=== PATIENT | male | born 1935 | race Caucasian/White ===

== ENCOUNTER 2021-01-04 10:20 | Emergency (ER) | payer MEDICARE, OTHER ==
[~2021-01-04] VITALS: Ht 172.7 cm; Wt 74.8 kg
[2021-01-04] MEDS ORDERED: HYDROCHLOROTH12.5 MG PO (11:28)
[2021-01-04] MEDS ORDERED: AMLODIPINE BESYL5 MG PO (11:29)
[2021-01-04] MEDS ORDERED: METOPROLOL SUCC25 MG PO (11:29)
[2021-01-04] MEDS ORDERED: LOSA50 PO (11:29)
[2021-01-04] MEDS ORDERED: DONEPEZIL HCL5 M2 PO (11:29)
== END 2021-01-04 12:29 | disposition home or self-care (01) ==
LOC: ER 10:20
DX: M54.5 Low back pain (principal); F17.200 Nicotine dependence, unspecified, uncomplicated; Z79.899 Other long term (current) drug therapy
CPT/HCPCS: 72100; 99283-25